=== PATIENT | female | born 1985 | race Two or more races ===

== ENCOUNTER → 2025-01-03 | Outpatient (CLI) | payer BC, SELFPAY ==
--- NOTE | 2025-01-03 13:30 | XR_ITS ---
Examination: Breast ultrasound complete, bilateral Date and time of exam: January 03, 2025, 1404 hours INDICATIONS: Left breast sonogram March 07, 2024 2:00 nodule 9 mm 3 o'clock nodule 12 mm Technique: Real-time grayscale ultrasonographic imaging bilateral breasts, including all 4 quadrants as well as nipple retroareolar and axillary regions. Findings: Sonographic images right breast No cystic or solid mass 27 mm axillary lymph node Sonographic images left breast 12:00 nodule 8 x 6 mm lobular margins 3:00 nodule 10 x 10 mm lobular margins IMPRESSION: BI-RADS Category 2: Benign findings
--- NOTE | 2025-01-03 14:30 | XR_ITS ---
Examination: Diagnostic digital mammography, bilateral Computer aided detection 3-D breast Tomosynthesis, bilateral Date and time of exam: January 03, 2025, 1418 hours, compared to 02/11/2024 INDICATIONS: Patient states lump in the left breast one year Technique: Nonmagnified MLO, CC views of the breasts to been obtained, reconstructed from 3-D Tomosynthesis images. R2 computer aided detection program utilized for evaluation of suspicious masses and/or abnormal calcifications. 3-D Tomosynthesis images obtained. Findings: Scattered areas of fibroglandular density Please see the left breast sonogram report today indicating 12:00 and 3:00 nodules unchanged compared to left breast sonogram 02/05/2025 Impression: BI-RADS category 2: Benign findings Recommend yearly follow-up mammography If palpable left breast remains, recommend repeat left breast sonography in 6 months.
== END | disposition home or self-care (01) ==
LOC: CDIM 13:22
PROVIDERS: PCP Nurse Practitioner Family; Referring Provider Surgery; Visit Provider Surgery
DX: R92.323 Mammographic fibroglandular density, bilateral breasts (principal)
CPT/HCPCS: 76641; 77062; 77066; G0279